=== PATIENT | female | born 1955 | race American Indian/Alaskan Native ===

== ENCOUNTER 2017-08-01 10:16 | Outpatient (CLI) | payer MEDICARE, OTHER ==
--- NOTE | 2017-08-01 13:46 | Mammography Report ---
Bilateral mammogram: Compared to 07/22/16. CAD study utilized. Findings: Predominance of adipose tissue bilaterally. No mass or microcalcification. Benign calcifications and axillary nodes. Impression: Benign findings. Annual followup recommended. BI-RADS CATEGORY: 2 = Benign ACR BI-RADS MAMMOGRAPHIC CODES: 0 = Needs additional imaging evaluation; 1 = Negative; 2 = Benign; 3 = Probably benign; 4 = Suspicious; 5 = Malignant; 6 = Known biopsy-proven malignancy COMMENT: 1. Dense breast tissue, i.e., adenosis, fibrocystic changes, etc., may obscure an underlying neoplasm. 2. Approximately 10% of cancers are not detected with mammography. 3. A negative mammography report should not delay biopsy if a clinically suspicious mass is present. COMMENT: Patient follow-up letters are generated in MySQL.
== END 2017-08-01 10:17 | disposition home or self-care (01) ==
LOC: MAMMO 10:16
PROVIDERS: ATTEND Internal Medicine
DX: Z12.31 Encounter for screening mammogram for malignant neoplasm of breast (principal)
CPT/HCPCS: 77067; G0202

== ENCOUNTER 2018-08-03 09:23 | Outpatient (CLI) | payer MEDICARE, OTHER ==
--- NOTE | 2018-08-03 10:36 | XRay Report ---
LEFT HIP, 2 views: History: Left hip pain. Findings: Mild to moderate osteoarthritic changes are identified at the left hip. No evidence for fracture, dislocation, osteonecrosis or bone lesion. IMPRESSION: Osteoarthritis.
--- NOTE | 2018-08-03 15:53 | Mammography Report ---
BILATERAL DIGITAL SCREENING MAMMOGRAM with CAD : 08/03/18 09:23:00 CLINICAL: Routine screening. COMPARISON:08/01/17 FINDINGS: The breasts are heterogeneously dense, which may obscure small masses. No mass, architectural distortion or suspicious calcifications. IMPRESSION: No mammographic evidence of malignancy. BI-RADS CATEGORY: 2 -- Benign RECOMMENDATION: Routine mammographic screening in one year. COMMENT: Patient follow-up letters are generated by our [employer] application.
== END 2018-08-03 09:24 | disposition home or self-care (01) ==
LOC: MAMMO 09:23
PROVIDERS: ATTEND Internal Medicine
DX: Z12.31 Encounter for screening mammogram for malignant neoplasm of breast (principal); M16.12 Unilateral primary osteoarthritis, left hip
CPT/HCPCS: 77067

== ENCOUNTER 2019-09-04 07:19 | Outpatient (CLI) | payer MEDICARE, OTHER ==
--- NOTE | 2019-09-04 15:45 | Mammography Report ---
DIGITAL SCREENING MAMMOGRAM WITH CAD, 09/04/2019 INDICATION: Routine screening mammography. TECHNIQUE: Digital bilateral 2D mammography was obtained in the craniocaudal and mediolateral obliq ue projections. This examination was interpreted with the benefit of Computer-Aided Detection analysi s. COMPARISON: 08/03/2018 FINDINGS: Breast Density: The breasts are heterogeneously dense, which may obscure small masses. There is no evidence of dominant mass, suspicious calcifications or suspicious architectural distorti on in either breast. Stable left inner periareolar postsurgical scar. IMPRESSION: No mammographic evidence of malignancy. Follow up recommendation: Routine yearly BI-RADS Category 2: Benign. A "normal" or negative report should not discourage follow up or biopsy of a clinically significant f inding. A written summary of these findings will be mailed to the patient. The patient will be entered into a mammography reporting system which will generate a reminder letter for the patient's next appointmen t at the appropriate interval. The [employer] recommends yearly mammograms starting at age 40 and continuing as l yonis as a woman is in good health. Breast MRI is recommended for women with an approximate 20-25% or greater lifetime risk of breast cancer, including women with a strong family history of breast or ova chasidy cancer or who have been treated for Hodgkin's disease. Signer Name: Duc Ramos MD Signed: 09/04/2019 3:40 PM Workstation Name: [id number]
== END 2019-09-04 07:20 | disposition home or self-care (01) ==
LOC: MAMMO 07:19
PROVIDERS: ATTEND Internal Medicine
DX: Z12.31 Encounter for screening mammogram for malignant neoplasm of breast (principal)
CPT/HCPCS: 77067

== ENCOUNTER 2019-12-26 08:54 | Outpatient (CLI) | payer MEDICARE, OTHER ==
[2019-12-26 09:41] LABS: BUN/Creatinine Ratio 10; Blood Urea Nitrogen 10 mg/dL (7-17); Calcium 9.4 mg/dL (8.4-10.2); Hemolysis Index 1
--- NOTE | 2019-12-26 11:14 | Fluoroscopy Report ---
Upper GI HISTORY: GE REFLUX POSSIBLE/R05 COUGH/E11.9 DIABETES. Technique: Single and double contrast barium technique utilized to evaluate the esophagus, stomach, and duodenal C-loop. Findings: No mucosal irregularity, mass, mass effect, or critical stenosis. There is a moderately-s ized hiatal hernia. There were no abnormal tertiary contractions as seen with dysmotility. There is a lso mild gastroesophageal reflux reaching the distal esophagus. Impression: 1. Moderate-sized hiatal hernia. 2. Mild gastroesophageal reflux. Fluoroscopic time: 1.7 minutes Number of fluoroscopic images: 19 Signer Name: Renato Mijares MD Signed: 12/26/2019 11:09 AM Workstation Name: [id number]
[2019-12-26 11:25] LABS: ABG Base Excess 1.2 mmol/L (-2.0-3.0); ABG HCO3 25.8 mmol/L (20.0-26.0); ABG Methemoglobin 0.6 % (0.0-1.5); ABG Oxygen Saturation 96.9 % (95.0-99.0); ABG PCO2 40.8 mm Hg; ABG PH 7.418 pH Units (7.350-7.450); ABG PO2 85.1 mm Hg (80.0-90.0)
== END 2019-12-26 08:55 | disposition home or self-care (01) ==
LOC: FLUORO 08:54
PROVIDERS: ATTEND Internal Medicine
DX: K44.9 Diaphragmatic hernia without obstruction or gangrene (principal); K21.9 Gastro-esophageal reflux disease without esophagitis; R05 Cough; E11.9 Type 2 diabetes mellitus without complications; E78.00 Pure hypercholesterolemia, unspecified; Z87.01 Personal history of pneumonia (recurrent)
CPT/HCPCS: 36415; 36600; 74246; 80048; 82785; 82803

== ENCOUNTER 2020-09-05 07:20 | Outpatient (CLI) | payer MEDICARE, OTHER ==
--- NOTE | 2020-09-05 09:02 | Mammography Report ---
DIGITAL SCREENING MAMMOGRAM WITH CAD, 09/05/2020 CLINICAL INFORMATION / INDICATION: Routine screening mammography. SCREENING MAMMOGRAM TECHNIQUE: Digital bilateral 2D mammography was obtained in the craniocaudal and mediolateral obliqu e projections. This examination was interpreted with the benefit of Computer-Aided Detection analysis . COMPARISON: 08/03/2018 FINDINGS: Breast Density: There are scattered areas of fibroglandular density. No dominant mass, suspicious calcifications, or architectural distortion in either breast. Postsurgical scar is noted in the left breast. IMPRESSION: No mammographic evidence of malignancy. Follow up recommendation: Routine yearly BI-RADS Category 2: Benign. A "normal" or negative report should not discourage follow up or biopsy of a clinically significant f inding. A written summary of these findings will be mailed to the patient. The patient will be entered into a mammography reporting system which will generate a reminder letter for the patient's next appointmen t at the appropriate interval. The [employer] recommends yearly mammograms starting at age 40 and continuing as l yonis as a woman is in good health. Breast MRI is recommended for women with an approximate 20-25% or greater lifetime risk of breast cancer, including women with a strong family history of breast or ova chasidy cancer or who have been treated for Hodgkin's disease. Signer Name: Rafael Saravia MD Signed: 09/05/2020 8:57 AM Workstation Name: [id number]
== END 2020-09-05 07:21 | disposition home or self-care (01) ==
LOC: MAMMO 07:20
PROVIDERS: ATTEND Internal Medicine
DX: Z12.31 Encounter for screening mammogram for malignant neoplasm of breast (principal); N64.89 Other specified disorders of breast
CPT/HCPCS: 77067

== ENCOUNTER 2021-09-09 09:57 | Outpatient (CLI) | payer MEDICARE, OTHER ==
--- NOTE | 2021-09-10 12:24 | Mammography Report ---
DIGITAL SCREENING MAMMOGRAM WITH CAD, 09/09/2021 CLINICAL INFORMATION / INDICATION: Routine screening mammography. SCREENING MAMMO Z12.31 TECHNIQUE: Digital bilateral 2D mammography was obtained in the craniocaudal and mediolateral obliqu e projections. This examination was interpreted with the benefit of Computer-Aided Detection analysis . COMPARISON: 09/05/2020 FINDINGS: Breast Density: There are scattered areas of fibroglandular density. No dominant mass, suspicious calcifications, or architectural distortion in either breast. IMPRESSION: No mammographic evidence of malignancy. Follow up recommendation: Routine yearly BI-RADS Category 1: Negative. A "normal" or negative report should not discourage follow up or biopsy of a clinically significant f inding. A written summary of these findings will be mailed to the patient. The patient will be entered into a mammography reporting system which will generate a reminder letter for the patient's next appointmen t at the appropriate interval. The [employer] recommends yearly mammograms starting at age 40 and continuing as l yonis as a woman is in good health. Breast MRI is recommended for women with an approximate 20-25% or greater lifetime risk of breast cancer, including women with a strong family history of breast or ova chasidy cancer or who have been treated for Hodgkin's disease. Signer Name: Renato Mijares MD Signed: 09/10/2021 12:19 PM Workstation Name: [id number]
== END 2021-09-09 09:58 | disposition home or self-care (01) ==
LOC: SPVWC 09:57
PROVIDERS: ATTEND Internal Medicine
DX: Z12.31 Encounter for screening mammogram for malignant neoplasm of breast (principal)
CPT/HCPCS: 77067